=== PATIENT | male | born 1985 ===

== ENCOUNTER 2020-09-19 22:23 | Emergency (ER) | payer OTHER ==
[~2020-09-19] VITALS: Ht 167.6 cm; Wt 81.8 kg
[2020-09-19 22:44] VITALS: TEMP 97.4
[2020-09-20 00:06] VITALS: BP 135/83; PULSE 87
== END 2020-09-20 00:06 | disposition home or self-care (01) ==
LOC: COL.ER 22:23
DX: S46.912A Strain of unspecified muscle, fascia and tendon at shoulder and upper arm level, left arm, initial encounter (principal); X50.9XXA Other and unspecified overexertion or strenuous movements or postures, initial encounter